=== PATIENT | male | born 1995 | race Caucasian/White ===

== ENCOUNTER 2016-06-01 20:07 | Emergency (ER) | payer OTHER ==
[2016-06-01 20:15] VITALS: BP 129/75
--- NOTE | 2016-06-01 21:01 | ED ---
Head Injury - HPI Summary HPI Summary: Patient arrives to ED after sustaining a fall while sliding down railing and hitting his posterior head on the ground with grass about 30 minutes ago. He denies LOC, memory loss, confusion. Endorses slight pain in the occipital region, but no contusion or swelling is present. He notes to some nausea after , but denies vomiting and all symptoms have now dissipated. He endorses thoracic back pain tenderness to palpation over midline T4. He states pain is about a 2/10 and worse with taking a deep breath. Hx of back pain and states this feels similar. Denies SOB, chest pain. denies cervical tenderness midline. denies visual changes. - History Of Current Complaint Chief Complaint: EDHeadInjury Stated Complaint: HEAD INJURY Time Seen by Provider: 06/01/16 20:17 Hx Obtained From: Patient Mechanism Of Injury: Direct Blow, Fall From Height Of: - 3ft Onset/Duration: Started Minutes Ago Onset of Pain: Immediate Severity Currently: Mild Severity Initially: Mild Pain Intensity: 2 Pain Scale Used: 0-10 Numeric Location of Head Injury: Occipital Character: Aching Associated Signs And Symptoms: Nausea - Risk Factors SDH Risk Factor: Male - Allergies/Home Medications Allergies/Adverse Reactions: Allergies Allergy/AdvReac Type Severity Reaction Status Date / Time No Known Allergies Allergy Verified 06/01/16 20:15 PMH/Surg Hx/FS Hx/Imm Hx Previously Healthy: Yes Infectious Disease History: No Infectious Disease History: Denies: Traveled Outside the [place] in Last 30 Days - Family History Known Family History: Positive: Unknown - Social History Occupation: Student Lives: Alone Alcohol Use: Weekly Hx Substance Use: Yes Substance Use Type: Reports: Marijuana Hx Tobacco Use: No Smoking Status (MU): Never Smoked Tobacco Do You Chew or Dip Tobacco: No Review of Systems Constitutional: Negative Eyes: Negative Cardiovascular: Negative Respiratory: Negative Positive: Nausea Positive: Arthralgia - thoracic spine tenderness over T4 - pain at 2/10 Skin: Negative Neurological: Negative Psychological: Normal All Other Systems Reviewed And Are Negative: Yes Physical Exam Triage Information Reviewed: Yes Vital Signs On Initial Exam: Initial Vitals Temp Pulse Resp BP Pulse Ox 98.6 F 71 16 129/75 98 06/01/16 20:13 06/01/16 20:13 06/01/16 20:13 06/01/16 20:13 06/01/16 20:13 Vital Signs Reviewed: Yes Appearance: Positive: Well-Appearing, No Pain Distress, Well-Nourished Skin: Positive: Warm, Skin Color Reflects Adequate Perfusion Head/Face: Positive: Normal Head/Face Inspection Eyes: Positive: EOMI, LOCO, Conjunctiva Clear ENT: Positive: Normal ENT inspection, TMs normal Neck: Positive: Nontender, No Lymphadenopathy Respiratory/Lung Sounds: Positive: Clear to Auscultation, Breath Sounds Present Cardiovascular: Positive: Normal, RRR Musculoskeletal: Positive: Normal, Strength/ROM Intact Neurological: Positive: Normal, Sensory/Motor Intact, Alert, Oriented to Person Place, Time, CN Intact II-III, Speech Normal Psychiatric: Positive: Normal AVPU Assessment: Alert - Sam Coma Scale Best Eye Response: 4 - Spontaneous Best Motor Response: 6 - Obeys Commands Best Verbal Response: 5 - Oriented - pronator drift negative. romberg negative Diagnostics - Vital Signs Vital Signs Temp Pulse Resp BP Pulse Ox 06/01/16 20:13 98.6 F 71 16 129/75 98 - Laboratory Lab Statement: Any lab studies that have been ordered have been reviewed, and results considered in the medical decision making process. Head Injury Course/Dx Course Of Treatment: Neuro exam WNL. Posterior head tenderness. Patient feeling well and without pain otherwise. States pain over midline tenderness over T4, but states he has chronic back issues and this feels similar. Patient will be discharged home with return precautions and instructions for possible concussive symptoms. Equal breath sounds, denies SOB or chest pain. - Diagnoses Differential Diagnosis/HQI/PQRI: Concussion Without LOC, Contusion, Skull Fracture Provider Diagnoses: Head contusion Discharge - Discharge Plan Condition: Stable Disposition: HOME Patient Education Materials: Head Injury (ED) Referrals: [facility] ZOEY Fatima [Primary Care Provider] - Additional Instructions: Come back to ED if you develop any symptoms such as memory loss, confusion, vomiting, worsening pain or difficulty breathing. Ibuprofen 600mg for pain. Images - Images Head: 1 - pain on palpation = 2/10
== END 2016-06-01 20:46 | disposition home or self-care (01) ==
LOC: ED 20:07
DX: S00.93XA Contusion of unspecified part of head, initial encounter (principal); W19.XXXA Unspecified fall, initial encounter; Y93.9 Activity, unspecified; Y92.9 Unspecified place or not applicable
CPT/HCPCS: 99281

== ENCOUNTER 2016-06-02 18:46 | Emergency (ER) | payer OTHER ==
--- NOTE | 2016-06-02 21:56 | RAD ---
Indication: Persistent headache and nausea following striking head last night. Comparison: None. Technique: Noncontrast CT vertex of skull through foramen magnum. Report: The sulci, ventricles, and basal cisterns are normal for age. Mccollum matter white matter differentiation is preserved without evidence for edema. No intra or extra axial hemorrhage is detected. Unremarkable visualized orbital contents. Negative for calvarial or skull base fracture. Negative for scalp hematoma. The visualized paranasal sinuses and mastoid air spaces are clear. IMPRESSION: No CT evidence for traumatic brain injury. Negative unenhanced head CT.
[2016-06-03 06:20] VITALS: BP 113/66
== END 2016-06-02 22:25 | disposition home or self-care (01) ==
LOC: ED 18:46
DX: S09.90XA Unspecified injury of head, initial encounter (principal); R51 Headache; R11.0 Nausea; W10.9XXA Fall (on) (from) unspecified stairs and steps, initial encounter; Y93.9 Activity, unspecified; Y92.9 Unspecified place or not applicable
CPT/HCPCS: 70450; 99282

== ENCOUNTER 2017-07-30 13:21 | Emergency (ER) | payer OTHER ==
--- NOTE | 2017-07-30 16:26 | ED ---
GI/ HPI - HPI Summary HPI Summary: Patient is a 21-year-old male who presents emergency department for a penile rash times one day. Patient states he recently had unprotected sex. He states that him and his partner were both tested for STDs recently and were negative. Patient states rash is mildly pruritic. He denies penile discharge. Denies dysuria, fevers, nausea or vomiting. Symptoms are mild in severity. He has no past medical history. No current modifying factors. - History of Current Complaint Chief Complaint: EDRashSkinAbscess Time Seen by Provider: 07/30/17 15:04 Stated Complaint: RASH Hx Obtained From: Patient Pain Intensity: 0 - Allergy/Home Medications Allergies/Adverse Reactions: Allergies Allergy/AdvReac Type Severity Reaction Status Date / Time No Known Allergies Allergy Verified 07/30/17 13:40 PMH/Surg Hx/FS Hx/Imm Hx Previously Healthy: Yes Infectious Disease History: No Infectious Disease History: Reports: Traveled Outside the [place] in Last 30 Days - Family History Known Family History: Positive: Unknown - Social History Occupation: Student Lives: Dormitory/Roommates Alcohol Use: Occasionally Hx Substance Use: Yes Substance Use Type: Reports: None Hx Tobacco Use: No Smoking Status (MU): Never Smoked Tobacco Review of Systems Constitutional: Negative Negative: Fever, Chills Gastrointestinal: Negative Positive: other - penile rash. Negative: burning, dysuria, discharge Positive: Rash All Other Systems Reviewed And Are Negative: Yes Physical Exam Triage Information Reviewed: Yes Vital Signs On Initial Exam: Initial Vitals Temp Pulse Resp BP Pulse Ox 98.4 F 75 16 132/64 98 07/30/17 13:33 07/30/17 13:33 07/30/17 13:33 07/30/17 13:33 07/30/17 13:33 Vital Signs Reviewed: Yes Appearance: Positive: Well-Appearing - Patient sitting in bed in no acute distress. Pleasant. Skin: Positive: Warm, Dry Head/Face: Positive: Normal Head/Face Inspection Eyes: Positive: Normal Male Genital Exam: Positive: Other - Exam performed with tech present in the room. Testicles are unremarkable without erythema, edema or lesions. Very faint, small area of macular erythema noted to the anterior posterior aspect of the penile shaft. No vesicles or discharge. No wounds or induration. No penile discharge. No lymphadenopathy. Diagnostics - Vital Signs Vital Signs Temp Pulse Resp BP Pulse Ox 07/30/17 13:33 98.4 F 75 16 132/64 98 - Laboratory Lab Statement: Any lab studies that have been ordered have been reviewed, and results considered in the medical decision making process. GIGU Course/Dx - Course Assessment/Plan: Patient presenting to the ER for complaints of rash after unprotective sex. He is afebrile. On exam there are no vesicles. He has two areas of extremely faint erythema. Viral culture obtain as well as GC/ Chlamydia. We will wait for results for treatment. Suspect dermatitis. Advised patient to [facility]. Advised to always use sexual protection. To return the ear symptoms change or worsen. We'll call patient if cultures are positive. - Diagnoses Provider Diagnoses: Rash Discharge - Sign-Out/Discharge Documenting (check all that apply): Discharge/Admit/Transfer - Discharge Plan Condition: Good Disposition: HOME Patient Education Materials: Sexually Transmitted Diseases (ED), Dermatitis (ED ) Referrals: No Primary Care Phys,NOPCP [Primary Care Provider] - Additional Instructions: Schedule a follow up appointment with [facility], [place] Will call you if cultures come back positive Always use sexual protection Return to ER if symptoms change or worsen - Billing Disposition and Condition Condition: GOOD Disposition: HOME
[2017-07-30 16:41] VITALS: BP 103/58
== END 2017-07-30 16:40 | disposition home or self-care (01) ==
LOC: ED 13:21
DX: R21 Rash and other nonspecific skin eruption (principal)
CPT/HCPCS: 87491; 87529; 87591; 87798; 99282